=== PATIENT | male | born 1945 | race Caucasian/White ===

== ENCOUNTER 2016-11-21 13:58 | Emergency (ER) | payer MEDICARE, OTHER ==
--- NOTE | 2016-11-24 12:08 | ER ---
ADMIT: 11/21/2016 RM/LOC: [facility] MR#: [id number] [address] [id number] [address] [place] [address] Emergency Room Report SEX: M AGE: 71 : 1945 DATE: 11/21/2016 SUBJECTIVE: A 71-year-old male, presents to the emergency room with the paramedics. Apparently, he was at the [place] [employer] and felt very fatigue and had some nausea. He states he became dehydrated. He has done this before where he had to be playing golf and not hydrating enough and felt kind of like he was going to pass out. REVIEW OF SYSTEMS: He has no complaints. PAST MEDICAL HISTORY: 1. He had an [place] in 2008. 2. Has had hypertension. 3. He had a quadruple bypass. MEDICATIONS: He is on: 1. Plavix. 2. Aspirin. 3. Lisinopril. SOCIAL HISTORY: He drinks alcohol occasionally. ALLERGIES: HE HAS NO ALLERGIES. PHYSICAL EXAMINATION: VITAL SIGNS: Blood pressure 135/67, heart rate is 75, respirations 16, temperature is 97.8, O2 sats 100%. GENERAL: Alert and oriented, very pleasant gentleman, in no acute distress. He does however have dry oral mucosa. NECK: Supple. RESPIRATIONS: No distress. CARDIOVASCULAR: Regular in rate and rhythm. ABDOMEN: Nontender. SKIN: Slightly dry but intact. EXTREMITIES: Well perfused. ADMIT: 11/21/2016 RM/LOC: [facility] MR#: [id number] [address] [id number] [address] [place] [address] Emergency Room Report SEX: M AGE: 71 : 1945 NEURO: He is oriented. PSYCH: Mood and affect appropriate. Cranial nerves II through XII are grossly intact. No neurological deficit. No evidence of acute CVA. He refused an IV, but agreed to fluids through either Powerade or Gatorade and water. We did get a urine from him. I wanted to check his kidney function. We did have ketones 2+. He was released. He was walking without any difficulty. He felt really good. He said he had a nephew who was waiting for him, so he was released with a diagnosis of mild dehydration, near syncopal episode. Follow up with his physician in [place]. Continue hydration. Stay indoors when it is hot. Continue home medication. JOSE Cornell / Mo Ruiz MD / modl JOB #: [id number] CC: Mo Ruiz MD, Attending Physician Gus Abdullahi MD, Family Physician
== END 2016-11-21 16:32 | disposition home or self-care (01) ==
LOC: ER 13:58
DX: R55 Syncope and collapse (principal); E86.0 Dehydration; I10 Essential (primary) hypertension; I25.2 Old myocardial infarction; Z95.1 Presence of aortocoronary bypass graft; Z79.01 Long term (current) use of anticoagulants; Z79.82 Long term (current) use of aspirin; Z79.899 Other long term (current) drug therapy